=== PATIENT | male | born 1945 | race Caucasian/White ===

== ENCOUNTER 2017-08-03 20:24 | Emergency (ER) | payer MEDICARE, BC ==
[2017-08-03] MEDS ORDERED: HYDROmorphone 0.5 MG/0.5 ML SYRINGE IVPUSH ONE (21:18)
[2017-08-03] MEDS ORDERED: Sodium Chloride 0.9% 10 ML Syringe FLUSH PRN (21:18)
--- NOTE | 2017-08-03 22:52 | EDM.PDOC ---
ED HPI GENERAL MEDICAL PROBLEM - General Chief Complaint: Genitourinary Problem Stated Complaint: UTI/CA PT/CATH PLUGGED Time Seen by Provider: 08/03/17 20:49 Source of Information: Reports: Patient History Limitations: Reports: No Limitations - History of Present Illness INITIAL COMMENTS - FREE TEXT/NARRATIVE: 72-year-old male presents for evaluation and treatment of urinary tract infection infarct. Patient is visiting [place] from [place]. He has been having problems with urinary tract infections for the last 2 weeks. Reports about 2 weeks started on a ten-day course of antibiotics. Continued to have UTI symptoms after the antibiotics and was seen again in [place]. He had a catheter placed and was started on ciprofloxacin twice a day for 7 days. Current symptoms include hematuria. States the cathater has now clotted off due to the clots. He denies any fevers, chills or vomiting. States he is nauseous but he is also on chemotherapy. Reports that he is on xeralto from his oncologist but does not why. Patient is scheduled to see urology in the near future. He is complaining of some lower abdominal pain and some back pain. He took about heat ibuprofen for relief earlier today. patient is currently receiving chemotherapy. 2013 he had prostate cancer which responded well to radiation. In 2015. 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 He recently had a scan which did not show any further involvement and sounds as if he is responding well to the chemotherapy. Lower Abdomen Pain Score (Numeric/FACES): 9 - Related Data Allergies Allergy/AdvReac Type Severity Reaction Status Date / Time morphine Allergy Cannot Verified 08/06/17 07:17 Remember Home Meds: Home Meds Ciprofloxacin [Cipro XR] 500 mg PO BID 08/03/17 [History] Multivit-Min/FA/Lycopen/Lutein [Centrum Silver Men Tablet] 1 tab PO DAILY [History] levETIRAcetam [Keppra] 1,000 mg PO DAILY 08/03/17 [History] Hydrocodone/Acetaminophen [Hydrocodon-Acetaminophen 5-325] 1 - 2 each PO Q6HR PRN #5 tablet 08/06/17 [Rx] Past Medical History Respiratory History: Reports: Other (See Below) Other Respiratory History: lung cancer Gastrointestinal History: Reports: Other (See Below) Other Gastrointestinal History: hx of colon cancer Genitourinary History: Reports: Other (See Below) Other Genitourinary History: hx of prostate cancer - Past Surgical History Cardiovascular Surgical History: Reports: Coronary Artery Stent GI Surgical History: Reports: Colon Social & Family History - Tobacco Use Smoking Status *Q: Former Smoker Used Tobacco, but Quit: Yes Month/Year Tobacco Last Used: 1984 - Caffeine Use Caffeine Use: Reports: None - Recreational Drug Use Recreational Drug Use: No ED ROS GENERAL - Review of Systems Review Of Systems: See Below Constitutional: Denies: Fever, Chills GI/Abdominal: Reports: Abdominal Pain (suprapbuic pain), Nausea (chronically from cancer and chemo). Denies: Vomiting : Reports: Hematuria, Other (oliver cathater in place) Musculoskeletal: Reports: Back Pain ED EXAM, RENAL/ - Physical Exam Exam: See Below Exam Limited By: No Limitations General Appearance: Alert, WD/WN, No Apparent Distress Ears: Normal External Exam Nose: Normal Inspection Throat/Mouth: Normal Inspection, Normal Lips, Normal Voice, No Airway Compromise Respiratory/Chest: No Respiratory Distress, Lungs Clear, Normal Breath Sounds Cardiovascular: Normal Peripheral Pulses, Regular Rate, Rhythm (pulse is 84 bpm. ), No Murmur GI/Abdominal: Normal Bowel Sounds, Soft, Non-Tender (Male) Exam: Suprapubic Fullness (and tenderness), Other (dried blood around the penile meatus; oliver leg bag with dark red urine wiht multiple clots in the bag) Neurological: Alert, Oriented, Normal Cognition Psychiatric: Normal Affect, Normal Mood Skin Exam: Warm, Dry, Normal Color Course - Vital Signs Last Recorded V/S: Last Vital Signs Temp 97.4 F 08/03/17 20:30 Pulse 105 H 08/03/17 20:30 Resp 18 08/03/17 20:30 BP 142/84 H 08/03/17 20:30 Pulse Ox 95 08/03/17 20:30 - Orders/Labs/Meds Labs: Laboratory Tests 08/03/17 08/03/17 08/03/17 Range/Units 21:33 21:33 21:33 WBC 10.47 H (4.23-9.07) K/mm3 RBC 4.32 L (4.63-6.08) M/mm3 Hgb 14.0 (13.7-17.5) gm/L Hct 41.0 (40.1-51.0) % MCV 94.9 H (79.0-92.2) fl MCH 32.4 H (25.7-32.2) pg MCHC 34.1 (32.2-35.5) g/dl RDW Std Deviation 52.0 H (35.1-43.9) fL Plt Count 167 (163-337) K/mm3 MPV 9.6 (9.4-12.3) fl Neutrophils % (Manual) 75 H (40-60) % Band Neutrophils % 0 (0-10) % Lymphocytes % (Manual) 20 (20-40) % Atypical Lymphs % 0 % Monocytes % (Manual) 4 (2-10) % Eosinophils % (Manual) 1 (0.8-7.0) % Basophils % (Manual) 0 L (0.2-1.2) Platelet Estimate Adequate RBC Morph Comment Normal Sodium 135 L (136-145) mEq/L Potassium 4.0 (3.5-5.1) mEq/L Chloride 100 (98-107) mEq/L Carbon Dioxide 26 (21-32) mEq/L Anion Gap 13.0 (5-15) BUN 14 (7-18) mg/dL Creatinine 1.0 (0.7-1.3) mg/dL Est Cr Clr Drug Dosing 74.35 mL/min Estimated GFR (MDRD) > 60 (>60) mL/min BUN/Creatinine Ratio 14.0 (14-18) Glucose 184 H (83-115) mg/dL Lactic Acid 1.6 (0.4-2.0) mmol/L Calcium 9.4 (8.5-10.1) mg/dL Total Bilirubin 0.7 (0.2-1.0) mg/dL AST 23 (15-37) U/L ALT 27 (16-63) U/L Alkaline Phosphatase 80 (46-116) U/L C-Reactive Protein (<1.0) mg/dL Total Protein 7.3 (6.4-8.2) g/dl Albumin 3.6 (3.4-5.0) g/dl Globulin 3.7 gm/dL Albumin/Globulin Ratio 1.0 (1-2) Urine Color (Yellow) Urine Appearance (Clear) Urine pH (5.0-8.0) Ur Specific [place] (1.005-1.030) Urine Protein (Negative) Urine Glucose (UA) (Negative) Urine Ketones (Negative) Urine Occult Blood (Negative) Urine Nitrite (Negative) Urine Bilirubin (Negative) Urine Urobilinogen (0.2-1.0) Ur Leukocyte Esterase (Negative) Urine RBC (0-5) /hpf Urine WBC (0-5) /hpf Ur Epithelial Cells (0-5) /hpf Amorphous Sediment (NOT SEEN) /hpf Urine Bacteria (FEW) /hpf Urine Mucus (FEW) /hpf 08/03/17 08/03/17 Range/Units 21:33 22:07 WBC (4.23-9.07) K/mm3 RBC (4.63-6.08) M/mm3 Hgb (13.7-17.5) gm/L Hct (40.1-51.0) % MCV (79.0-92.2) fl MCH (25.7-32.2) pg MCHC (32.2-35.5) g/dl RDW Std Deviation (35.1-43.9) fL Plt Count (163-337) K/mm3 MPV (9.4-12.3) fl Neutrophils % (Manual) (40-60) % Band Neutrophils % (0-10) % Lymphocytes % (Manual) (20-40) % Atypical Lymphs % % Monocytes % (Manual) (2-10) % Eosinophils % (Manual) (0.8-7.0) % Basophils % (Manual) (0.2-1.2) Platelet Estimate RBC Morph Comment Sodium (136-145) mEq/L Potassium (3.5-5.1) mEq/L Chloride (98-107) mEq/L Carbon Dioxide (21-32) mEq/L Anion Gap (5-15) BUN (7-18) mg/dL Creatinine (0.7-1.3) mg/dL Est Cr Clr Drug Dosing mL/min Estimated GFR (MDRD) (>60) mL/min BUN/Creatinine Ratio (14-18) Glucose (83-115) mg/dL Lactic Acid (0.4-2.0) mmol/L Calcium (8.5-10.1) mg/dL Total Bilirubin (0.2-1.0) mg/dL AST (15-37) U/L ALT (16-63) U/L Alkaline Phosphatase (46-116) U/L C-Reactive Protein 3.5 H* (<1.0) mg/dL Total Protein (6.4-8.2) g/dl Albumin (3.4-5.0) g/dl Globulin gm/dL Albumin/Globulin Ratio (1-2) Urine Color [place] H (Yellow) Urine Appearance Clear (Clear) Urine pH 6.5 (5.0-8.0) Ur Specific [place] 1.010 (1.005-1.030) Urine Protein 2+ H (Negative) Urine Glucose (UA) Negative (Negative) Urine Ketones Negative (Negative) Urine Occult Blood 3+ H (Negative) Urine Nitrite Negative (Negative) Urine Bilirubin Negative (Negative) Urine Urobilinogen 0.2 (0.2-1.0) Ur Leukocyte Esterase Trace H (Negative) Urine RBC 50-75 H (0-5) /hpf Urine WBC 0-5 (0-5) /hpf Ur Epithelial Cells 0-5 (0-5) /hpf Amorphous Sediment Few H (NOT SEEN) /hpf Urine Bacteria Not seen (FEW) /hpf Urine Mucus Not seen (FEW) /hpf Meds: Medications Discontinued Medications Generic Name Dose Route Start Last Admin Trade Name Freq PRN Reason Stop Dose Admin Hydromorphone HCl 0.5 mg 08/03/17 21:18 08/03/17 21:35 Dilaudid IVPUSH 08/03/17 21:19 0.5 mg ONETIME ONE Administration Sodium Chloride 10 ml 08/03/17 21:18 08/03/17 21:34 Saline Flush FLUSH 10 ml ASDIRECTED PRN Administration Keep Vein Open - Re-Assessments/Exams Free Text/Narrative Re-Assessment/Exam: 08/03/17 23:02 Patient's catheter was irrigated and he felt immediate relief of the suprapubic fullness and tenderness. I reviewed the labs with the patient. Plan will be to irrigate one more time and will discharge home. Encouraged to drink fluids. Educated this may occur again and he is to return if it does to have the catheter irrigated again. Encouraged follow-up with urology. May require a cystoscopy for further evaluation of his gross hematuria. Discharge instructions as documented. Departure - Departure Time of Disposition: 23:09 Disposition: Home, Self-Care 01 Condition: Fair Clinical Impression: Hematuria Qualifiers: Hematuria type: gross Qualified Code(s): R31.0 - Gross hematuria - Discharge Information Instructions: Hematuria, Adult Referrals: PCP,Not In Area [Primary Care Provider] - Forms: ED Department Discharge Additional Instructions: Continuing taking your ciprofloxacin as prescribed. make sure you are drinking plenty of fluids. This will allow you to go to the bathroom more frequently and prevent the clots from forming. Recommend drinking at least 60 ounces of fluids daily. Follow up with urology next week when you return to [place]. If the bleeding continues you may need further evaluation such as a cystoscopy to further evaluate your bladder. Please return to the ER for symptoms change or worsen. We would like to see you back for any fevers, rigors, vomiting, clotting of her catheter or any worsening of the hematuria.
== END 2017-08-03 23:54 | disposition home or self-care (01) ==
LOC: JD.ED 20:24
DX: R31.0 Gross hematuria (principal); Z88.5 Allergy status to narcotic agent; Z87.891 Personal history of nicotine dependence
CPT/HCPCS: 36415; 51700; 51798; 80053; 81001; 83605; 85007; 85027; 86140; 87040; 87086; 96374; 99284; J1170; J7050

== ENCOUNTER 2017-08-04 04:50 | Emergency (ER) | payer MEDICARE, BC ==
--- NOTE | 2017-08-04 05:19 | EDM.PDOC ---
ED HPI GENERAL MEDICAL PROBLEM - General Chief Complaint: Genitourinary Problem Stated Complaint: UNABLE TO URINATE/PAIN Time Seen by Provider: 08/04/17 05:10 Source of Information: Reports: Patient, Family () History Limitations: Reports: Physical Impairment (hard of hearing. ) - History of Present Illness INITIAL COMMENTS - FREE TEXT/NARRATIVE: 72-year-old male presents to the ED with complaints of intermittent lower abdominal cramping pain or bladder spasms. He has a current 22 Japanese three-way irrigating catheter in place with a 30 mL balloon. This was placed 2 days ago in [place] ED after he developed urinary retention and quite significant gross hematuria apparently secondary to an infective process. He is currently on Cipro IV 100 mg twice a day and urine for the most part has been clear. His chief complaint is lower abdominal pain. He was seen earlier yesterday and given a dose of Dilaudid 0.5 mg IV which seemed to relieve his discomfort for 6 hours or so. He admits that he has little bit constipated as his bowels are slow down as well. He has had recurrent urinary tract infections over the last few weeks. Rarely visiting here from [place] plans to stay until Monday. Current bladder scan reveals 150 mils in the bladder indicating the catheter is not draining adequately. Likely the ports are partially clogged off from clot. Onset: Sudden Onset Date: 08/03/17 (Lots of problems with pain and clogged catheter yesterday one day after was placed for gross hematuria and urinary retention and suspect urinary tract infection.) Duration: Hour(s): Location: Reports: Abdomen (Intermittent lower abdominal spasm or bladder spasm pain.) Quality: Reports: Other Severity: Severe (Ladder spasm pain which is sharp stabbing 8 out of 10) Improves with: Reports: None Worsens with: Reports: None Context: Reports: Other (Experiencing increased bladder spasms due to Ramirez catheter in his bladder with a 30 mL balloon and likely clogged catheter at least partially. There is 155 mils in his bladder on bladder scan. He reports he has to bear down or pushed antegrade get any urine to come out.). Denies: Activity, Exercise, Lifting, Sick Contact, Trauma Associated Symptoms: Denies: Confusion, Chest Pain, Cough, cough w sputum, Diaphoresis, Fever/Chills, Headaches, Loss of Appetite, Malaise, Nausea/Vomiting , Rash, Seizure, Shortness of Breath, Syncope Treatments MEAT DRESSER: Reports: Other (see below) (None.) penis Pain Score (Numeric/FACES): 8 - Related Data Allergies Allergy/AdvReac Type Severity Reaction Status Date / Time morphine Allergy Cannot Verified 08/04/17 05:10 Remember Home Meds: Home Meds Ciprofloxacin [Cipro XR] 500 mg PO BID 08/03/17 [History] Multivit-Min/FA/Lycopen/Lutein [Centrum Silver Men Tablet] 1 tab PO DAILY [History] levETIRAcetam [Keppra] 1,000 mg PO DAILY 08/03/17 [History] Past Medical History Respiratory History: Reports: Other (See Below) Other Respiratory History: lung cancer Gastrointestinal History: Reports: Other (See Below) Other Gastrointestinal History: hx of colon cancer Genitourinary History: Reports: Other (See Below) Other Genitourinary History: hx of prostate cancer Neurological History: Reports: Seizure (Currently on 1 g of Keppra twice a day) - Past Surgical History Cardiovascular Surgical History: Reports: Coronary Artery Stent GI Surgical History: Reports: Colon Social & Family History - Family History Family Medical History: Noncontributory - Tobacco Use Smoking Status *Q: Unknown Ever Smoked Second Hand Smoke Exposure: No - Caffeine Use Caffeine Use: Reports: Coffee - Recreational Drug Use Recreational Drug Use: No - Living Situation & Occupation Living situation: Reports: Occupation: Retired ED [employer] GENER[facility] - Review of Systems Review Of Systems: See Below Constitutional: Reports: Malaise, Weakness, Fatigue, Decreased Appetite. Denies : Fever, Chills, Weight Loss HEENT: Reports: Hearing Loss (He is not wearing hearing aids at present.) Respiratory: Reports: Shortness of Breath. Denies: Wheezing (On exertion), Cough Cardiovascular: Denies: Chest Pain Endocrine: Reports: Fatigue GI/Abdominal: Reports: Abdominal Pain (See history of present illness), Constipation (Has not had much for bowel movement for the last 2-3 days.) : Reports: Urgency, Urinary Retention (Currently having a lot of bladder spasms. Seen 3 days ago for acute urinary retention secondary to suspect infection and hemorrhagic cystitis.), Other Musculoskeletal: Reports: Back Pain, Joint Pain Skin: Reports: No Symptoms Neurological: Reports: No Symptoms Psychiatric: Reports: No Symptoms Hematologic/Lymphatic: Reports: No Symptoms ED EXAM, RENAL/ - Physical Exam Exam: See Below Exam Limited By: No Limitations General Appearance: Moderate Distress Respiratory/Chest: No Respiratory Distress, Lungs Clear, Normal Breath Sounds, Chest Non-Tender, Decreased Breath Sounds (Decreased breath sounds to the lower 25% of lung kathleen. ) Cardiovascular: Regular Rate, Rhythm, No Edema, No Gallop GI/Abdominal: Distended, Abnormal Bowel Sounds (Slightly distended and dull to percussion suprapubically but the rest of his abdomen is tympanitic to percussion.) (Male) Exam: Other (He has a 22 Japanese three-way Ramirez catheter inserted into his bladder with a 30 mL balloon. Bladder scan reveals 155 mils of urine in his bladder.) Back Exam: Normal Inspection, Decreased Range of Motion. No: CVA Tenderness (L) , CVA Tenderness (R) Extremities: Normal Inspection, Normal Range of Motion, Non-Tender, No Pedal Edema Psychiatric: Normal Affect Skin Exam: Warm, Dry, Intact, Normal Color, No Rash Course - Vital Signs Last Recorded V/S: Last Vital Signs Temp 36.1 C 08/04/17 04:55 Pulse 93 08/04/17 04:55 Resp 18 08/04/17 04:55 BP 137/90 08/04/17 04:55 Pulse Ox 94 L 08/04/17 04:55 - Orders/Labs/Meds Orders: Active Orders 24 hr Category Date Time Status Ramirez Catheter Insertion [Insert Urinary Catheter] [OM. Care 08/04/17 05:30 Ordered PC] Q24H Peripheral IV Care [RC] . DIRECTED Care 08/04/17 05:23 Active Urinary Catheter Assessment [RC] ASDIRECTED Care 08/04/17 05:26 Active Abdomen 1V Flat [CR] Stat Exams 08/04/17 06:21 Taken Sodium Chloride 0.9% [Saline Flush] Med 08/04/17 05:23 Active 10 ml FLUSH ASDIRECTED PRN Peripheral IV Insertion Adult [OM.PC] Stat Oth 08/04/17 05:23 Ordered Medication Orders Sodium Chloride (Saline Flush) 10 ml FLUSH ASDIRECTED PRN PRN Reason: Keep Vein Open Last Admin: 08/04/17 05:37 Dose: 10 ml Meds: Medications Generic Name Dose Route Start Last Admin Trade Name Alex PRN Reason Stop Dose Admin Sodium Chloride 10 ml 08/04/17 05:23 08/04/17 05:37 Saline Flush FLUSH 10 ml ASDIRECTED PRN Administration Keep Vein Open Discontinued Medications Generic Name Dose Route Start Last Admin Trade Name Alex PRN Reason Stop Dose Admin Hydromorphone HCl 0.5 mg 08/04/17 05:23 08/04/17 05:36 Dilaudid IVPUSH 08/04/17 05:24 0.5 mg ONETIME ONE Administration Ondansetron HCl 4 mg 08/04/17 05:24 08/04/17 05:36 Zofran IVPUSH 08/04/17 05:25 4 mg ONETIME ONE Administration - Radiology Interpretation Free Text/Narrative:: 72-year-old male returns to the ED due to recurrent problems with his Ramirez catheter. Ramirez catheter is placed on August 01 due to urinary retention with gross hematuria. Presumed to be secondary to an infective process. Is currently on Cipro 500 twice a day and the urine has become much clear. He remains afebrile. He had full laboratory workup yesterday still had a CRP of 3.5 but the urinalysis showed only red cells 50-75 per high-power field. He is currently experiencing quite significant bladder spasms. Peak complains bitterly of penile pain as well. This may be due to the size of the Ramirez catheter. The fact that he still is under good effect I've mils of urine is clean his bladder with the Ramirez Place indicates the Ramirez is not functioning properly and is likely occluded at least most of the ports. Plan is to reduce the size of the Ramirez to an 18-gauge Coude tipped single-lumen catheter. Also reduce the size of the balloon to 20 mL. I will access his Port-A-Cath and provided with Dilaudid 0.5 mg IV with Zofran 4 mg IV for pain and nausea relief. We spoke about or bee suppositories for pain relief but he wasn't keen on using a suppository. - Re-Assessments/Exams Free Text/Narrative Re-Assessment/Exam: 08/04/17 06:09 Ramierz catheter has been changed to an 18 coud tip catheter that went into the ladder easily. No urine however returned. On inspection of the catheter was removed the ports were patent with no sign of occlusion. There is only 10 mL in the 30 mL balloon. I ultrasounded him and there still appears to be 150 mils of urine in the bladder. The Ramirez catheter appears to be in the urinary bladder. Urinary bladder will be irrigated to see if this full of clot. 08/04/17 06:15 Catheter was irrigated for numerous small worm sized clots. It is now functioning normally with good drainage. KUB will be ordered to see how severe his constipation is at this time 08/04/17 07:13 KUB reveals a bolus of stool in the right hemicolon but the remainder the colon is fairly empty. Therefore I'm just going to tell him to start MiraLAX powder 17 g or 1 scoop daily. To his bladder drainage hopefully will not occlude again from old clotted blood. If it does so any expenses bladder spasm he will have to return to the ED. Departure - Departure Time of Disposition: 07:14 Disposition: Home, Self-Care 01 Condition: Fair Clinical Impression: Ramirez catheter problem Qualifiers: Encounter type: subsequent encounter Qualified Code(s): T83.9XXD - Unspecified complication of genitourinary prosthetic device, implant and graft, subsequent encounter - Discharge Information Referrals: PCP,Not In Area [Primary Care Provider] - Forms: ED Department Discharge Additional Instructions: Evaluation in the emergency room once again this morning due to lower abdominal spastic pain due to bladder spasms. Large 22 Japanese irrigating Ramirez catheter in place since MondayAugust 01. Placed due to blood clots in the bladder from infective process is cause occlusion of the prostate and inability to void normally. A new Ramirez catheter was placed tonight thinking that the old one was clogged up with clot. A new Ramirez catheter was placed with no drainage occurring. Therefore the Ramirez catheter was irrigated and numerous warm like old blood clots were irrigated from the bladder. Subsequently the bladder appears to be draining normally. An x-ray of the abdomen was carried out and reveals increased stool in the right hemicolon but no signs of significant constipation. I would suggest using MiraLAX powder 1 scoop or 17 g daily to keep your bowels regular until the Ramirez catheter is removed and bladder problems resolved. Continue your antibiotic Cipro twice daily for infection. Of course return to the ED if further bladder spasms occur due to occlusion of your catheter. - My Orders Last 24 Hours: My Active Orders 08/04/17 05:23 Peripheral IV Care [RC] . DIRECTED Sodium Chloride 0.9% [Saline Flush] 10 ml FLUSH ASDIRECTED PRN Peripheral IV Insertion Adult [OM.PC] Stat 08/04/17 05:26 Urinary Catheter Assessment [RC] ASDIRECTED 08/04/17 05:30 Ramirez Catheter Insertion [Insert Urinary Catheter] [OM.PC] Q24H 08/04/17 06:21 Abdomen 1V Flat [CR] Stat - Assessment/Plan Last 24 Hours: My Active Orders 08/04/17 05:23 Peripheral IV Care [RC] . DIRECTED Sodium Chloride 0.9% [Saline Flush] 10 ml FLUSH ASDIRECTED PRN Peripheral IV Insertion Adult [OM.PC] Stat 08/04/17 05:26 Urinary Catheter Assessment [RC] ASDIRECTED 08/04/17 05:30 Ramirez Catheter Insertion [Insert Urinary Catheter] [OM.PC] Q24H 08/04/17 06:21 Abdomen 1V Flat [CR] Stat
[2017-08-04] MEDS ORDERED: HYDROmorphone 0.5 MG/0.5 ML SYRINGE IVPUSH ONE (05:23)
[2017-08-04] MEDS ORDERED: Sodium Chloride 0.9% 10 ML Syringe FLUSH PRN (05:23)
[2017-08-04] MEDS ORDERED: Ondansetron 4 MG/2 ML SDV IVPUSH ONE (05:24)
--- NOTE | 2017-08-04 10:21 | CR ---
Abdomen: Supine view of the abdomen was obtained. Comparison: No previous study. Right hip prosthesis is seen. Scattered degenerative change is seen within the spine. Bowel gas pattern appears normal. Small calcification is seen inferior to the transverse process of L3 on the right side. This may be dystrophic but difficult to exclude a ureteral stone and correlate with patient's symptoms. Impression: 1. Calcification inferior to the transverse process of L3 on the right side as described above. 2. Other incidental findings. Diagnostic code #3
== END 2017-08-04 07:33 | disposition home or self-care (01) ==
LOC: JD.ED 04:50
DX: T83.9XXD Unspecified complication of genitourinary prosthetic device, implant and graft, subsequent encounter (principal); Z79.899 Other long term (current) drug therapy; Z88.5 Allergy status to narcotic agent
CPT/HCPCS: 51702; 74018; 96374; 96375; 99284; J1170; J2405; J7050

== ENCOUNTER 2017-08-04 21:58 | Emergency (ER) | payer MEDICARE, BC ==
--- NOTE | 2017-08-04 22:15 | EDM.PDOC ---
ED HPI GENERAL MEDICAL PROBLEM - General Chief Complaint: Genitourinary Problem Stated Complaint: CATHETER PROBLEMS Time Seen by Provider: 08/04/17 22:13 Source of Information: Reports: Patient, Family () History Limitations: Reports: No Limitations - History of Present Illness INITIAL COMMENTS - FREE TEXT/NARRATIVE: Patient had a Ramirez catheter placed in [place] on August 01 due to urinary retention. Identified to have an infective process at that time and is been having recurrent urinary tract infections for the last couple of weeks. He was started on Cipro 500 mg twice a day on which she remains. He was seen twice in the last 24 hours due to problems with the Ramirez catheter being plugged up. It responded to irrigation on 2 previous occasions. When I had seen him earlier this morning there did not appear to be any blood in the drainage bag but was 155 mils on bladder scan in his bladder. Was felt that the tube is likely clogged and therefore was removed. This was a three-way 1222 [place]i Ramirez catheter. A new 18-gauge Coude tipped Ramirez catheter was placed into urinary bladder and no urine return. Ultrasound revealed the Ramirez catheter be well within the bladder and seated normally. There was about 250 mils of urine in the bladder at that time. Ramirez catheter was irrigated and numerous small wormlike clots were obtained. After this the Ramirez seemed to function and draining well. The patient was thus discharged to home around 8:00 this morning. Since that time he states he did well up until about 3 hours ago. Now there is no drainage in the urinary bag. Last time he voided he pushed urine out around the Ramirez catheter. Not having near as much bladder spasms or pain since the catheter was changed. Onset: Other (Initial presentation was to the ED in [place] August 01 at which time a 22 three-way Ramirez catheter was placed for irrigation purposes. Identified to have a urinary tract infection at that time.) Onset Date: 08/04/17 (Well since catheter change early this morning up until about 3 hours ago. He had to force the urine out around the Ramirez catheter. There is nothing in the drainage bag. This indicates the Ramirez is clogged up.) Duration: Hour(s): Location: Reports: Other (Ramirez catheter occlusion.) Quality: Reports: Other Severity: Moderate (Lower abdominal pressure discomfort.) Improves with: Reports: None Worsens with: Reports: None Context: Reports: Other (Ramirez catheter problems. Appears that he once again it is clogged up with blood clot. Is to have a persistent low-grade hemorrhage from within the bladder not secondary to infection but some other etiology such as bladder cancer or stone.). 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 (see below) (None.) - Related Data Allergies Allergy/AdvReac Type Severity Reaction Status Date / Time morphine Allergy Cannot Verified 08/04/17 05:10 Remember Home Meds: Home Meds Ciprofloxacin [Cipro XR] 500 mg PO BID 08/03/17 [History] Multivit-Min/FA/Lycopen/Lutein [Centrum Silver Men Tablet] 1 tab PO DAILY [History] levETIRAcetam [Keppra] 1,000 mg PO DAILY 08/03/17 [History] Past Medical History Respiratory History: Reports: Other (See Below) Other Respiratory History: lung cancer Gastrointestinal History: Reports: Other (See Below) Other Gastrointestinal History: hx of colon cancer Genitourinary History: Reports: Other (See Below) Other Genitourinary History: hx of prostate cancer Neurological History: Reports: Seizure (Currently on 1 g of Keppra twice a day) Oncologic (Cancer) History: Reports: Colon (Treated with surgery and radiation.) - Past Surgical History Cardiovascular Surgical History: Reports: Coronary Artery Stent GI Surgical History: Reports: Colon Social & Family History - Family History Family Medical History: Noncontributory - Caffeine Use Caffeine Use: Reports: Coffee - Living Situation & Occupation Living situation: Reports: Occupation: Retired ED ROS GENERAL - Review of Systems Review Of Systems: See Below Constitutional: Reports: Fatigue (Catching up on sleep is been difficult.). Denies: Fever, Chills HEENT: Reports: No Symptoms Respiratory: Reports: Shortness of Breath. Denies: Wheezing, Pleuritic Chest Pain (On exertion), Cough, Sputum, Hemoptysis Cardiovascular: Reports: No Symptoms. Denies: Chest Pain, Blood Pressure Problem, Claudication, Dyspnea on Exertion, Edema, Lightheadedness, Orthopnea, Palpitations Endocrine: Reports: Fatigue GI/Abdominal: Reports: Constipation (Mild constipation. KUB done last night revealed increased stool within the cecum only.) : Reports: Hematuria, Urinary Retention, Other (Acute urinary retention occurred August 01. He had a 22 Kuwaiti three-way Ramirez catheter placed in [place]. Socially this tube became occluded on 2 occasions responded to irrigation. It did not respond to irrigation last night and therefore the tube was changed out. Case single-lumen 18 Kuwaiti coud-tipped Ramirez catheter was placed. Initially it did not provide any urine return either. Ultrasound confirmed good position of the tube. Irrigation of this tube removed a good deal of small wormlike clots. After this it seemed to function well with normal drainage. He had about 250 mils of urine in his bladder at that time) Musculoskeletal: Reports: Back Pain Skin: Reports: No Symptoms Neurological: Reports: No Symptoms ED EXAM, RENAL/ - Physical Exam Exam: See Below Exam Limited By: No Limitations General Appearance: Alert, WD/WN, No Apparent Distress, Other (Color is good.) Eye Exam: Bilateral Eye: Normal Inspection GI/Abdominal: Normal Bowel Sounds, Soft, Non-Tender, No Organomegaly, No Distention, No Abnormal Bruit, Pelvis Stable, Other (Bladder is not palpable at the time of exam.) (Male) Exam: Other (Ramirez catheter in the bladder. There is no urine in the drainage bag indicating that the tube is occluded. States he last emptied about 4 hours ago.) Back Exam: Normal Inspection, Full Range of Motion. No: CVA Tenderness (L), CVA Tenderness (R) Extremities: Normal Inspection, Normal Range of Motion, Non-Tender, No Pedal Edema, Other Neurological: Alert, Oriented (Arthritic changes both knees.), CN II-XII Intact , Normal Cognition, Normal Gait Course - Vital Signs Last Recorded V/S: Last Vital Signs Temp 35.6 C 08/04/17 22:16 Pulse 58 L 08/04/17 22:16 Resp 20 08/04/17 22:16 BP 115/84 08/04/17 22:16 Pulse Ox 95 08/04/17 22:16 - Orders/Labs/Meds Orders: Active Orders 24 hr Category Date Time Status Bladder Scan [RC] ONETIME Care 08/04/17 22:29 Active - Radiology Interpretation Free Text/Narrative:: 72-year-old male returns to the ED for the third time in 24 hours with problems with his Ramirez catheter becoming reoccluded with blood clots. The catheter was changed out earlier this morning as he had a 22 [place]i three-way Ramirez catheter placed initially for urinary retention in [place] August 01. Identified have a urinary tract infection of the time was placed on Cipro 500 mg twice a day for which she remains on. Ramirez catheter was changed out this morning as it was not functioning. A new Ramirez catheter 18-gauge single lumen was placed. It worked well up until about 4 hours ago when he is no longer passing any urine into his drainage bag. It is felt that the tube is plugged up. He is not having near as much pain in his penis or lower abdomen since Ramirez catheter was changed. She wastolerating a smaller tube better. Plan will be to irrigate this Ramirez catheter to see if we can get clots IN the bladder empty. Bladder scan to be done. - Re-Assessments/Exams Free Text/Narrative Re-Assessment/Exam: 08/04/17 22:47 catheter irrigation proved to be successful with removal of a couple of large clots and then free flow of urine. Bladder was irrigated with 500 mils of normal saline and no other blood return. He will therefore be discharged home of course return if similar problems seem to occur. He has some reason for active bleeding in his bladder wall which needs to be further investigated by cystoscopy and he believes he is due for cystoscopy on Monday next week. This will be in [place] his home. Note the bladder scan identified only 20 mils of urine within the bladder. Departure - Departure Time of Disposition: 22:48 Disposition: Home, Self-Care 01 Condition: Fair Clinical Impression: Ramirez catheter problem Qualifiers: Encounter type: subsequent encounter Qualified Code(s): T83.9XXD - Unspecified complication of genitourinary prosthetic device, implant and graft, subsequent encounter - Discharge Information Referrals: PCP,Not In Area [Primary Care Provider] - Forms: ED Department Discharge Additional Instructions: Reevaluation in the emergency room tonight in regards to problems with Ramirez catheter being clogged up by blood clots. Bladder irrigation was able to remove these clots and then 500 mils of normal saline irrigation washed out the bladder once again. No significant blood did occur at this time. Therefore at this time carry on. Return of course to the ED if similar type problems occur over the weekend. Definitive management will be a look into the bladder with a scope to see where the bleeding source is coming from. We believe you're scheduled for cystoscopy procedure next Monday back in [place]. Continue your Cipro antibiotic has previously prescribed. - My Orders Last 24 Hours: My Active Orders 08/04/17 22:29 Bladder Scan [RC] ONETIME - Assessment/Plan Last 24 Hours: My Active Orders 08/04/17 22:29 Bladder Scan [RC] ONETIME
== END 2017-08-04 23:00 | disposition home or self-care (01) ==
LOC: JD.ED 21:58
DX: T83.091A Other mechanical complication of indwelling urethral catheter, initial encounter (principal); Z79.899 Other long term (current) drug therapy; Z88.5 Allergy status to narcotic agent
CPT/HCPCS: 51700; 51798; 99283-25

== ENCOUNTER 2017-08-05 18:20 | Emergency (ER) | payer MEDICARE, BC ==
--- NOTE | 2017-08-05 19:02 | EDM.PDOC ---
ED HPI GENERAL MEDICAL PROBLEM - General Chief Complaint: Genitourinary Problem Stated Complaint: CATH PROBLEMS Time Seen by Provider: 08/05/17 18:52 Source of Information: Reports: Patient, Family (spouse) History Limitations: Reports: No Limitations - History of Present Illness INITIAL COMMENTS - FREE TEXT/NARRATIVE: Once again returns to the ED due to no urine passage through his Ramirez catheter to drainage bag since about noon today. Increase lower abdominal distention and pain. Almost daily over the last 4-5 days due to occlusion of his catheter by blood clots. It has responded to irrigation and one Ramirez catheter change out. Onset: Today Onset Date: 08/05/17 (No urine in his drainage bag since noon today.) Duration: Hour(s): Location: Reports: Abdomen (Diffuse lower abdominal suprapubic pressure discomfort radiating to his back.) Quality: Reports: Ache, Pressure Severity: Moderate Improves with: Reports: None Worsens with: Reports: None Context: Denies: Activity, Exercise, Lifting, Sick Contact, Trauma Associated Symptoms: Reports: No Other Symptoms. Denies: Confusion, Chest Pain , Cough, cough w sputum, Diaphoresis, Fever/Chills, Loss of Appetite, Malaise, Nausea/Vomiting, Rash, Seizure Treatments DIGITAL COORDINATOR: Reports: Other (see below) (None.) - Related Data Allergies Allergy/AdvReac Type Severity Reaction Status Date / Time morphine Allergy Cannot Verified 08/04/17 05:10 Remember Home Meds: Home Meds Ciprofloxacin [Cipro XR] 500 mg PO BID 08/03/17 [History] Multivit-Min/FA/Lycopen/Lutein [Centrum Silver Men Tablet] 1 tab PO DAILY [History] levETIRAcetam [Keppra] 1,000 mg PO DAILY 08/03/17 [History] Past Medical History Respiratory History: Reports: Other (See Below) Other Respiratory History: lung cancer dx 09/2016 Gastrointestinal History: Reports: Hiatal Hernia, Other (See Below) Other Gastrointestinal History: Colon cancer dx 06/2014 Genitourinary History: Reports: Other (See Below) Other Genitourinary History: hx of prostate cancer Neurological History: Reports: Seizure Oncologic (Cancer) History: Reports: Colon, Lung - Past Surgical History Cardiovascular Surgical History: Reports: Coronary Artery Stent Other Cardiovascular Surgeries/Procedures: x4 coronary stent placed 06/2017 GI Surgical History: Reports: Colon Musculoskeletal Surgical History: Reports: Hip Replacement, Knee Replacement Other Musculoskeletal Surgeries/Procedures:: Bilateral knees replacements, R hip Social & Family History - Family History Family Medical History: Noncontributory - Tobacco Use Smoking Status *Q: Former Smoker Used Tobacco, but Quit: Yes Month/Year Tobacco Last Used: 02/1984 - Caffeine Use Caffeine Use: Reports: Coffee Other Caffeine Use: gataraide daily - Recreational Drug Use Recreational Drug Use: No - Living Situation & Occupation Living situation: Reports: Occupation: Retired ED ROS GENERAL - Review of Systems Review Of Systems: See Below Constitutional: Reports: Fatigue, Decreased Appetite. Denies: Fever, Chills, Malaise, Weight Loss HEENT: Reports: Hearing Loss Respiratory: Reports: Shortness of Breath Cardiovascular: Reports: Dyspnea on Exertion (On exertion.). Denies: Chest Pain , Blood Pressure Problem ( On exertion.), Claudication, Lightheadedness, Orthopnea Endocrine: Reports: No Symptoms GI/Abdominal: Reports: Abdominal Pain. Denies: Nausea, Stool Incontinence : Reports: Urinary Retention (Urinary retention occurred while he was in [place] on August 01. He had a three-way 22 Liberian Ramirez catheter placed at that time for retention and irrigation of bladder. Apparently identified to have a urinary tract infection that time and is been on Cipro 500 twice a day since that time. He has been in our ER every day since because a Ramirez catheter occlusion with clot. He is scheduled for a cystoscopy in [place] on Monday next week.) Musculoskeletal: Reports: Back Pain Skin: Reports: No Symptoms Neurological: Reports: No Symptoms Psychiatric: Reports: No Symptoms Hematologic/Lymphatic: Reports: No Symptoms Immunologic: Reports: No Symptoms ED EXAM, RENAL/ - Physical Exam Exam: See Below Exam Limited By: No Limitations General Appearance: Alert, WD/WN, Mild Distress (Yellow more pain than he was last night when he was in.) Eye Exam: Bilateral Eye: Normal Inspection Throat/Mouth: Normal Inspection, Normal Lips, Normal Teeth, Normal Oropharynx Head: Atraumatic, Normocephalic Neck: Normal Inspection, Supple, Non-Tender, Full Range of Motion Respiratory/Chest: Lungs Clear, Normal Breath Sounds, Respiratory Distress Cardiovascular: Normal Peripheral Pulses, Regular Rate, Rhythm, No Edema, No Murmur GI/Abdominal: Tender (Suprapubically. Difficult to ascertain if the bladder is distended or not.) (Male) Exam: Other (Has an 18 Liberian coud tip Ramirez catheter in place in the urine or bladder.) Back Exam: Normal Inspection, Full Range of Motion Extremities: Normal Inspection, Normal Range of Motion, Non-Tender, No Pedal Edema Neurological: Alert, Oriented, CN II-XII Intact, Normal Cognition Psychiatric: Normal Affect Skin Exam: Warm, Dry, Intact, Normal Color, No Rash Course - Vital Signs Last Recorded V/S: Last Vital Signs Temp 35.8 C 08/05/17 18:30 Pulse 74 08/05/17 18:30 Resp 20 08/05/17 18:30 BP 133/87 08/05/17 18:30 Pulse Ox 96 08/05/17 18:30 - Radiology Interpretation Free Text/Narrative:: 72-year-old male presents to the ED with diffuse lower abdominal pain. He has a history of urinary retention since last Monday. Hemorrhage was identified within the urine to retract. The exact cause is not clear. He had a urinary tract infection identified at the time of initial catheter placement and has been on Cipro 500 twice a day since that time. However he continues to have recurrence of occlusion of his Ramirez catheter by blood clots. Today he's had no urine in his drainage bag since noon. Urine that is in the bag is dark florencio in color and obviously bloody. Plan bladder bladder irrigation to be performed. - Re-Assessments/Exams Free Text/Narrative Re-Assessment/Exam: 08/05/17 19:26 pain is gone but it does not appear that the bladder is emptying on its own. There is only 60 mils in the drainage bag at this time. Further irrigation of the bladder to be done. 08/05/17 19:54 due to the frequency of his problem and need to return to the ED decision made to try and teach his how to irrigate the Ramirez catheter at home. Appropriate Vinod syringe and fluids will be sent home so that she can do this for him. Of course but fails he will return to the ED. He has plans to return to [place] tomorrow. Departure - Departure Time of Disposition: 19:55 Disposition: Home, Self-Care 01 Condition: Fair Clinical Impression: Hemorrhage of urinary bladder wall, Cystitis Ramirez catheter problem Qualifiers: Encounter type: subsequent encounter Qualified Code(s): T83.9XXD - Unspecified complication of genitourinary prosthetic device, implant and graft, subsequent encounter - Discharge Information Referrals: PCP,Not In Area [Primary Care Provider] - Forms: ED Department Discharge Additional Instructions: Once again returned to the ED due to occlusion of Ramirez catheter by blood clots. Each time you come there seems to be less bleeding but there obviously is continued bleeding from the lining of the bladder at some point that needs to be investigated further. Bladder irrigation was performed again to Ramirez catheter. You may attempt irrigation of your Ramirez catheter at home if it becomes occluded again. Again is very important to follow-up with urology services next week in [place] with a view to having a look inside her bladder to see where this bleeding is coming from. It appears to be more than just an infective process causing recurrent bleeding and occlusion of your Ramirez catheter tube.
== END 2017-08-05 20:10 | disposition home or self-care (01) ==
LOC: JD.ED 18:20
DX: T83.89XA Other specified complication of genitourinary prosthetic devices, implants and grafts, initial encounter (principal); N30.91 Cystitis, unspecified with hematuria; Z88.5 Allergy status to narcotic agent; Z79.899 Other long term (current) drug therapy; Z95.5 Presence of coronary angioplasty implant and graft; Z79.891 Long term (current) use of opiate analgesic
CPT/HCPCS: 51700; 99283; 99283-25

== ENCOUNTER 2017-08-06 07:05 | Emergency (ER) | payer MEDICARE, BC ==
[2017-08-06] MEDS ORDERED: Sodium Chloride 0.9% 10 ML Syringe FLUSH PRN (07:26)
[2017-08-06] MEDS ORDERED: Lidocaine 2% Jelly 10 ML Urojet MUCMEM ONE (07:27)
[2017-08-06] MEDS ORDERED: HYDROmorphone 0.5 MG/0.5 ML SYRINGE IVPUSH ONE ×2 (07:27→11:42)
[2017-08-06] MEDS ORDERED: Sodium Chloride 0.9% 1,000 ML IV SCH (07:30)
--- NOTE | 2017-08-06 11:37 | EDM.PDOC ---
ED HPI GENERAL MEDICAL PROBLEM - General Chief Complaint: Genitourinary Problem Stated Complaint: CATHETER IS PLUGGED Time Seen by Provider: 08/06/17 07:19 Source of Information: Reports: Patient, Family History Limitations: Reports: No Limitations - History of Present Illness INITIAL COMMENTS - FREE TEXT/NARRATIVE: The patient presents with his oliver cath being plugged and bleeding. He has a history of prostate cancer with mets and he is from [place]. He is here visiting family. He had some trouble urinating before he left [place] so he was seen and a oliver cath was put in. He has had trouble for days now with bleeding and the oliver cath getting clogged. He has been here 5 times. He has bladder spasms with it also. He has no fever, chills or cough. He is currently on cipro for a UTI. Onset: Gradual Duration: Day(s): Location: Reports: Abdomen Quality: Reports: Other (Cramping) Severity: Moderate Improves with: Reports: None Worsens with: Reports: None Associated Symptoms: Denies: Chest Pain, Fever/Chills, Headaches, Nausea/ Vomiting, Shortness of Breath Bladder Pain Score (Numeric/FACES): 2 - Related Data Allergies Allergy/AdvReac Type Severity Reaction Status Date / Time morphine Allergy Cannot Verified 08/06/17 07:17 Remember Home Meds: Home Meds Ciprofloxacin [Cipro XR] 500 mg PO BID 08/03/17 [History] Multivit-Min/FA/Lycopen/Lutein [Centrum Silver Men Tablet] 1 tab PO DAILY [History] levETIRAcetam [Keppra] 1,000 mg PO DAILY 08/03/17 [History] Past Medical History Respiratory History: Reports: Other (See Below) Other Respiratory History: lung cancer dx 09/2016 Gastrointestinal History: Reports: Hiatal Hernia, Other (See Below) Other Gastrointestinal History: Colon cancer dx 06/2014 Genitourinary History: Reports: Other (See Below) Other Genitourinary History: hx of prostate cancer Neurological History: Reports: Seizure Oncologic (Cancer) History: Reports: Colon, Lung - Past Surgical History Cardiovascular Surgical History: Reports: Coronary Artery Stent Other Cardiovascular Surgeries/Procedures: x4 coronary stent placed 06/2017 GI Surgical History: Reports: Colon Musculoskeletal Surgical History: Reports: Hip Replacement, Knee Replacement Other Musculoskeletal Surgeries/Procedures:: Bilateral knees replacements, R hip Social & Family History - Family History Family Medical History: Noncontributory - Tobacco Use Smoking Status *Q: Never Smoker - Caffeine Use Caffeine Use: Reports: Coffee Other Caffeine Use: gataraide daily - Recreational Drug Use Recreational Drug Use: No - Living Situation & Occupation Living situation: Reports: Occupation: Retired ED ROS GENERAL - Review of Systems Review Of Systems: See Below Constitutional: Reports: No Symptoms HEENT: Reports: No Symptoms Respiratory: Reports: No Symptoms Cardiovascular: Reports: No Symptoms Endocrine: Reports: No Symptoms GI/Abdominal: Reports: Abdominal Pain : Reports: Other (Oliver cath in place and bladder spasms) Musculoskeletal: Reports: No Symptoms Skin: Reports: No Symptoms Neurological: Reports: No Symptoms ED EXAM, GI/ABD - Physical Exam Exam: See Below Exam Limited By: No Limitations General Appearance: Alert, No Apparent Distress Ears: Normal External Exam Nose: Normal Inspection Head: Atraumatic, Normocephalic Neck: Normal Inspection Respiratory/Chest: No Respiratory Distress, Lungs Clear, Normal Breath Sounds Cardiovascular: Regular Rate, Rhythm, No Edema, No Murmur GI/Abdominal Exam: Soft, Non-Tender, No Organomegaly, No Mass (Male) Exam: Other (Oliver cath in place) Back Exam: Normal Inspection Extremities: Normal Inspection Neurological: Alert, Oriented, No Motor/Sensory Deficits Course - Vital Signs Last Recorded V/S: Last Vital Signs Temp 97.5 F 08/06/17 07:14 Pulse 78 08/06/17 07:14 Resp 16 08/06/17 07:14 BP 137/90 08/06/17 07:14 Pulse Ox 96 08/06/17 07:14 - Orders/Labs/Meds Orders: Active Orders 24 hr Category Date Time Status Bladder Irrigation [RC] CONTINUOUS Care 08/06/17 08:36 Active Insert Urinary Catheter [OM.PC] Q24H Care 08/06/17 08:45 Ordered Peripheral IV Care [RC] . DIRECTED Care 08/06/17 07:27 Active Urinary Catheter Assessment [RC] ASDIRECTED Care 08/06/17 08:38 Active Urinary Catheter Removal [RC] Per Unit Routine Care 08/06/17 08:36 Active Sodium Chloride 0.9% [Normal Saline] 1,000 ml Med 08/06/17 07:30 Active IV ASDIRECTED Sodium Chloride 0.9% [Saline Flush] Med 08/06/17 07:26 Active 10 ml FLUSH ASDIRECTED PRN Peripheral IV Insertion Adult [OM.PC] Stat Oth 08/06/17 07:26 Ordered Medication Orders Sodium Chloride (Normal Saline) 1,000 mls @ 125 mls/hr IV ASDIRECTED [place] Last Admin: 08/06/17 07:48 Dose: 125 mls/hr Sodium Chloride (Saline Flush) 10 ml FLUSH ASDIRECTED PRN PRN Reason: Keep Vein Open Last Admin: 08/06/17 07:49 Dose: 10 ml Labs: Laboratory Tests 08/06/17 08/06/17 08/06/17 Range/Units 07:40 07:40 07:40 WBC 7.52 (4.23-9.07) K/mm3 RBC 4.20 L (4.63-6.08) M/mm3 Hgb 13.4 L (13.7-17.5) gm/L Hct 40.3 (40.1-51.0) % MCV 96.0 H (79.0-92.2) fl MCH 31.9 (25.7-32.2) pg MCHC 33.3 (32.2-35.5) g/dl RDW Std Deviation 50.3 H (35.1-43.9) fL Plt Count 190 (163-337) K/mm3 MPV 9.7 (9.4-12.3) fl Neut % (Auto) 69.1 H (34.0-67.9) % Lymph % (Auto) 12.9 L (21.8-53.1) % Clarke % (Auto) 13.3 H (5.3-12.2) % Eos % (Auto) 4.3 (0.8-7.0) Baso % (Auto) 0.3 (0.1-1.2) % Neut # (Auto) 5.20 (1.78-5.38) K/mm3 Lymph # (Auto) 0.97 L (1.32-3.57) K/mm3 Clarke # (Auto) 1.00 H (0.30-0.82) K/mm3 Eos # (Auto) 0.32 (0.04-0.54) K/mm3 Baso # (Auto) 0.02 (0.01-0.08) K/mm3 PT 10.4 (9.5-12.1) SECONDS INR 0.95 APTT 26 (24-31) SECONDS Sodium 136 (136-145) mEq/L Potassium 4.0 (3.5-5.1) mEq/L Chloride 101 (98-107) mEq/L Carbon Dioxide 23 (21-32) mEq/L Anion Gap 16.0 H (5-15) BUN 15 (7-18) mg/dL Creatinine 0.9 (0.7-1.3) mg/dL Est Cr Clr Drug Dosing 82.61 mL/min Estimated GFR (MDRD) > 60 (>60) mL/min BUN/Creatinine Ratio 16.7 (14-18) Glucose 126 H (83-115) mg/dL Calcium 9.0 (8.5-10.1) mg/dL Total Bilirubin 0.4 (0.2-1.0) mg/dL AST 22 (15-37) U/L ALT 22 (16-63) U/L Alkaline Phosphatase 70 (46-116) U/L Total Protein 7.1 (6.4-8.2) g/dl Albumin 3.3 L (3.4-5.0) g/dl Globulin 3.8 gm/dL Albumin/Globulin Ratio 0.9 L (1-2) Meds: Medications Generic Name Dose Route Start Last Admin Trade Name Freq PRN Reason Stop Dose Admin Sodium Chloride 1,000 mls @ 125 mls/hr 08/06/17 07:30 08/06/17 07:48 Normal Saline IV 125 mls/hr ASDIRECTED [place] Administration Sodium Chloride 10 ml 08/06/17 07:26 08/06/17 07:49 Saline Flush FLUSH 10 ml ASDIRECTED PRN Administration Keep Vein Open Discontinued Medications Generic Name Dose Route Start Last Admin Trade Name Freq PRN Reason Stop Dose Admin Hydromorphone HCl 0.5 mg 08/06/17 07:27 08/06/17 07:47 Dilaudid IVPUSH 08/06/17 07:28 0.5 mg ONETIME ONE Administration Hydromorphone HCl 0.5 mg 08/06/17 11:42 08/06/17 11:58 Dilaudid IVPUSH 08/06/17 11:43 0.5 mg ONETIME ONE Administration Lidocaine HCl 10 ml 08/06/17 07:27 08/06/17 07:49 Xylocaine 2% Jelly MUCMEM 08/06/17 07:28 10 ml ONETIME ONE Administration - Re-Assessments/Exams Free Text/Narrative Re-Assessment/Exam: 08/06/17 12:15 I ordered an IV saline lock, dilaudid and lidocaine topical for the oliver insertion. I had my nurse take out the oliver cath and put a [address] way in and do continuous bladder irrigation. His CBC looks good with normal platelets. His PT and PTT are negative. His CMP looks good. He has been here over 4 hours with CBI and his output has cleared but when we slow it down it gets red again. I offered to admit him here but he wants to go home. He says if he bleeds again or gets clotted he will stop at [facility]. I called [facility] and talked with the ultrasound coordinator and she put a note in his chart. He is ready to leave soon. Departure - Departure Time of Disposition: 12:20 Disposition: Home, Self-Care 01 Condition: Good Clinical Impression: Hemorrhage of urinary bladder wall, Cystitis Hematuria Qualifiers: Hematuria type: gross Qualified Code(s): R31.0 - Gross hematuria Oliver catheter problem Qualifiers: Encounter type: subsequent encounter Qualified Code(s): T83.9XXD - Unspecified complication of genitourinary prosthetic device, implant and graft, subsequent encounter - Discharge Information Referrals: PCP,Not In Area [Primary Care Provider] - Forms: ED Department Discharge Additional Instructions: If you have more problems go directly to [facility] if you do not follow up with your doctor. - My Orders Last 24 Hours: My Active Orders 08/06/17 07:26 Sodium Chloride 0.9% [Saline Flush] 10 ml FLUSH ASDIRECTED PRN Peripheral IV Insertion Adult [OM.PC] Stat 08/06/17 07:27 Peripheral IV Care [RC] . DIRECTED 08/06/17 07:30 Sodium Chloride 0.9% [Normal Saline] 1,000 ml IV ASDIRECTED 08/06/17 08:36 Bladder Irrigation [RC] CONTINUOUS Urinary Catheter Removal [RC] Per Unit Routine 08/06/17 08:38 Urinary Catheter Assessment [RC] ASDIRECTED 08/06/17 08:45 Insert Urinary Catheter [OM.PC] Q24H - Assessment/Plan Last 24 Hours: My Active Orders 08/06/17 07:26 Sodium Chloride 0.9% [Saline Flush] 10 ml FLUSH ASDIRECTED PRN Peripheral IV Insertion Adult [OM.PC] Stat 08/06/17 07:27 Peripheral IV Care [RC] . DIRECTED 08/06/17 07:30 Sodium Chloride 0.9% [Normal Saline] 1,000 ml IV ASDIRECTED 08/06/17 08:36 Bladder Irrigation [RC] CONTINUOUS Urinary Catheter Removal [RC] Per Unit Routine 08/06/17 08:38 Urinary Catheter Assessment [RC] ASDIRECTED 08/06/17 08:45 Insert Urinary Catheter [OM.PC] Q24H
[2017-08-06] MEDS ORDERED: Take Home: Acetaminophen/HYDROcodone 325-5 MG, 5 Tab Pack ONE (12:37)
== END 2017-08-06 13:02 | disposition home or self-care (01) ==
LOC: JD.ED 07:05
DX: T83.091A Other mechanical complication of indwelling urethral catheter, initial encounter (principal); N30.91 Cystitis, unspecified with hematuria; N32.89 Other specified disorders of bladder; G40.909 Epilepsy, unspecified, not intractable, without status epilepticus; Z88.5 Allergy status to narcotic agent; Z79.899 Other long term (current) drug therapy
CPT/HCPCS: 36415; 51700; 51702; 51798; 80053; 85025; 85610; 85730; 96361; 96374; 96376; 99284; A9270; J1170; J7040; J7050